=== PATIENT | male | born 1990 | race Caucasian/White ===

== ENCOUNTER 2017-10-17 06:10 | Emergency (ER) ==
[2017-10-17 06:37] VITALS: BP 164/81; TEMP 98.1; BMI 29.9
[2017-10-17] MEDS ORDERED: ATIVAN IVP STA (06:45)
--- NOTE | 2017-10-17 08:12 | ED.PDOC ---
General ED Provider: Dr. OKSANA BARRETO Chief Complaint: Shortness of Air Stated Complaint: anxiety, short of air Time Seen by Physician: 07:00 (took over care from shaan TALAVERA ) Mode of Arrival: Walk-In Information Source: Patient Exam Limitations: No limitations Nursing and Triage Documentation Reviewed and Agree: Yes Reviewed sepsis parameters & appropriate labs ordered?: Yes System Inflammatory Response Syndrome: Not Applicable Sepsis Protocol: For patient's 13 years and over: Temp is 96.8 and below OR 101 and greater Pulse >90 BPM Resp >20/minute Acutely Altered Mental Status Are patient's symptoms suggestive of a new infection, such as: -Pneumonia -Skin, Soft Tissue -Endocarditis -UTI -Bone, Joint Infection -Implantable Device -Acute Abdominal Infection -Wound Infection -Meningitis -Blood Stream Catheter Infection -Unknown System Inflammatory Response Syndrome: Not Applicable Miscellaneous Complaint Exam - Complex/Multi-System Complaint/Exam Onset/Duration: acutely anxious, palpitation, 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 Denies: Decreased responsiveness, Confusion, Dizziness, Weakness, Syncope, Short of air, Cough, Wheezing, Hemoptysis, Chest pain, Palpitations, Edema, Nausea, Vomiting, Diarrhea, Abdominal pain, Back pain, Dysuria, Hematemesis, Melena, Decreased oral intake, Fever, Diaphoresis, Immunocompromised, Anticoagulation Therapy, Recent medication changes, Indwelling medical records manager, Prior MRSA, Prior VRE, Recent trauma, Remote trauma Recent Echo/LV Function: No Respiratory Distress: None JVD Present: No Tachypnea Present: No Stridor Present: No Abdominal Findings: Present: Normal findings Glascow Coma Scale (see protocol): 15 NO NEURO DEFICITS NOTED ON MY ARRIVAL AND THROUGH OUT PRESENTATION Meningeal Signs Positive: No Focal Weakness: Present: None Focal Sensory Loss: Present: None Gait: Normal Gag Reflex Present: Yes Differential Diagnosis: Other (ANXIETY, DRUG ABUSE ) Quality Indicators for Cardiac Chest Pain: EKG in 10min. Quality Indicators for AMI: EKG in 10min. Quality Indicator For Non-Traumatic Chest Pain/Syncope: EKG Performed Review of Systems - Review Of Systems Constitutional: Reports: No symptoms Eyes: Reports: No symptoms Ears, Nose, Mouth, Throat: Reports: No symptoms Respiratory: Reports: No symptoms Cardiac: Reports: No symptoms GI: Reports: No symptoms : Reports: No symptoms Musculoskeletal: Reports: No symptoms Skin: Reports: No symptoms Neurological: Reports: No symptoms Endocrine: Reports: No symptoms Hematologic/Lymphatic: Reports: No symptoms All Other Systems: Reviewed and Negative Past Medical History - Past Medical History Previously Healthy: Yes Endocrine: Reports: None Cardiovascular: Reports: None Respiratory: Reports: None Hematological: Reports: None Gastrointestinal: Reports: None Genitourinary: Reports: None Neuro/Psych: Reports: None Musculoskeletal: Reports: None Cancer: Reports: None - Surgical History General Surgical History: Reports: None - Family History Family History: Reports: None - Social History Smoking Status: Current every day smoker Hx Substance Use: Yes (marijuana - one day ago) Alcohol Screening: Occasionally - Immunizations Tetanus Shot up to Date: Yes Physical Exam - Physical Exam Appearance: Well-appearing, No pain distress, Well-nourished Eyes: REGAN, EOMI, Conjunctiva clear ENT: Ears normal, Nose normal, Oropharynx normal Respiratory: Airway patent, Breath sounds clear, Breath sounds equal, Respirations nonlabored Cardiovascular: RRR, Pulses normal, No rub, No murmur GI/: Soft, Nontender, No masses, Bowel sounds normal, No Organomegaly Musculoskeletal: Normal strength, ROM intact, No edema, No calf tenderness Skin: Warm, Dry, Normal color Neurological: Sensation intact, Motor intact, Reflexes intact, Cranial nerves intact, Alert, Oriented Psychiatric: Affect appropriate, Mood appropriate Interpretation - Radiology Interpretation Radiology Interpretation By: Radiologist Radiology Results: No acute changes Critical Care Note - Critical Care Note Total Time (mins): 0 Course - Course Hematology/Chemistry: 10/17/17 06:50 10/17/17 06:50 Orders, Labs, Meds: Lab Review 10/17/17 10/17/17 10/17/17 06:50 06:50 07:00 WBC 10.76 H RBC 5.43 Hgb 16.1 Hct 43.8 MCV 80.7 MCH 29.7 MCHC 36.8 H RDW Coeff of [place] 11.9 Plt Count 252 Immature Gran % (Auto) 0.2 Neut % (Auto) 58.1 Lymph % (Auto) 27.6 [place] % (Auto) 9.4 Eos % (Auto) 4.1 Baso % (Auto) 0.6 Immature Gran # (Auto) 0.0 Neut # 6.3 Lymph # 3.0 [place] # 1.0 Eos # 0.4 Baso # 0.1 Puncture Site L brach O2 Saturation 100.0 ABG pH 7.661 H* ABG pCO2 14.2 L ABG pO2 142.0 H ABG HCO3 16.0 L ABG Total CO2 16 L ABG Base Excess -5 L Shayne Test + FiO2 % 21.0 Sodium 137 Potassium 3.0 L Chloride 103 Carbon Dioxide 17 L Anion Gap 20.0 BUN 22 H Creatinine 1.39 H Estimated GFR (MDRD) 61.00 BUN/Creatinine Ratio 15.82 Glucose 104 H Calcium 9.5 Total Bilirubin 2.0 H AST 27 ALT 26 Alkaline Phosphatase 66 Total Creatine Kinase 326 CK-MB (CK-2) 4.2 H CK-MB (CK-2) % 1.99465 Troponin I < 0.0100 Total Protein 8.1 Albumin 4.6 Globulin 3.5 Albumin/Globulin Ratio 1.31 Urine Color Urine Clarity Urine pH Ur Specific [place] Urine Protein Urine Glucose (UA) Urine Ketones Urine Blood Urine Nitrite Urine Bilirubin Urine Urobilinogen Ur Leukocyte Esterase Urine Microscopic WBC Ur Squamous Epith Cells Amorphous Sediment Urine Mucus Urine Opiates Screen Ur Oxycodone Screen Urine Methadone Screen Ur Propoxyphene Screen Ur Barbiturates Screen U Tricyclic Antidepress Ur Phencyclidine Scrn Ur Amphetamine Screen U Methamphetamines Scrn U Benzodiazepines Scrn Urine Cocaine Screen U Cannabinoids Screen 10/17/17 10/17/17 07:20 07:20 WBC RBC Hgb Hct MCV MCH MCHC RDW Coeff of [place] Plt Count Immature Gran % (Auto) Neut % (Auto) Lymph % (Auto) [place] % (Auto) Eos % (Auto) Baso % (Auto) Immature Gran # (Auto) Neut # Lymph # [place] # Eos # Baso # Puncture Site O2 Saturation ABG pH ABG pCO2 ABG pO2 ABG HCO3 ABG Total CO2 ABG Base Excess Shayne Test FiO2 % Sodium Potassium Chloride Carbon Dioxide Anion Gap BUN Creatinine Estimated GFR (MDRD) BUN/Creatinine Ratio Glucose Calcium Total Bilirubin AST ALT Alkaline Phosphatase Total Creatine Kinase CK-MB (CK-2) CK-MB (CK-2) % Troponin I Total Protein Albumin Globulin Albumin/Globulin Ratio Urine Color Yellow Urine Clarity Clear Urine pH 6.0 Ur Specific [place] 1.025 Urine Protein Trace Urine Glucose (UA) Negative Urine Ketones 2+ Urine Blood Negative Urine Nitrite Negative Urine Bilirubin 1+ Urine Urobilinogen 0.2 Ur Leukocyte Esterase Negative Urine Microscopic WBC 0-2 Ur Squamous Epith Cells 0-2 Amorphous Sediment Trace Urine Mucus 1+ Urine Opiates Screen Negative Ur Oxycodone Screen Negative Urine Methadone Screen Negative Ur Propoxyphene Screen Negative Ur Barbiturates Screen Negative U Tricyclic Antidepress Negative Ur Phencyclidine Scrn Negative Ur Amphetamine Screen Positive U Methamphetamines Scrn Positive U Benzodiazepines Scrn Negative Urine Cocaine Screen Positive U Cannabinoids Screen Positive Orders Category Date Time Status ABG DRAW REQUEST Stat CARDIO 10/17/17 06:44 Completed EKG-(ED ONLY) Stat CARDIO 10/17/17 06:44 Completed NPO REMINDER: IMAGING ONCE CARE 10/17/17 06:45 Completed Chief Security And Safety Officer [ED SHIPFITTER APPRENTICE APPLIED] .ONCE EMERGENCY 10/17/17 06:51 Active ED IV/MEDIPORT/POWERPORT .ONCE EMERGENCY 10/17/17 06:45 Active ABG Stat LAB 10/17/17 07:00 Completed CBC W/ AUTO DIFF Stat LAB 10/17/17 06:50 Completed COMPREHENSIVE METABOLIC PANEL Stat LAB 10/17/17 06:50 Completed CREATINE KINASE Stat LAB 10/17/17 06:50 Completed TROPONIN I Stat LAB 10/17/17 06:50 Completed URINALYSIS C & S IF INDICATED Stat LAB 10/17/17 07:20 Completed URINE DRUG SCREEN (RAPID FOR ED) [DRUG SCREEN, URINE, LAB 10/17/17 07:20 Completed RAPID] Stat 0.9 % Sodium Chloride [Saline Flush] MEDS 10/17/17 06:45 Active 1 syr IVF PRN PRN Lorazepam Inj [Ativan] MEDS 10/17/17 06:45 Discontinued 1 mg IVP ONCE STA CT CHEST PE PROTOCOL Stat RADS 10/17/17 06:45 Taken Medications Generic Name Dose Route Start Last Admin Trade Name Freq PRN Reason Stop Dose Admin Sodium Chloride 1 syr 10/17/17 06:45 10/17/17 06:58 Saline Flush IVF 1 syr PRN PRN Administration To flush IV Discontinued Medications Generic Name Dose Route Start Last Admin Trade Name Freq PRN Reason Stop Dose Admin Lorazepam 1 mg 10/17/17 06:45 10/17/17 06:56 Ativan IVP 10/17/17 06:46 1 mg ONCE STA Administration Vital Signs: Temp Pulse Resp BP Pulse Ox 10/17/17 06:12 98.1 F 80 24 164/81 H 99 Departure - Departure Time of Disposition: 08:15 Disposition: HOME SELF-CARE Discharge Problem: Amphetamine abuse, episodic Instructions: Methamphetamine Abuse (ED) Condition: Good Pt referred to PMD for follow-up: Yes IPMP verified?: Yes Additional Instructions: Please call your Family Physician as soon as possible to schedule a follow-up appointment. Allergies/Adverse Reactions: Allergies No Known Allergies Allergy (Unverified 10/17/17 06:24) Home Medications: Ambulatory Orders 1 [No Reported Medications] 10/17/17 Disposition Discussed With: Patient
--- NOTE | 2017-10-17 08:20 | CT ---
EXAM: CTA of the chest. History: Chest pain and dyspnea. Technique: Multiplanar CT images through the chest were obtained following administration of IV cont rast. MIP images and 3-D reconstructions were also provided. Findings: Heart size is normal. No pericardial effusion. No pathologically enlarged thoracic lymph nodes. Great vessels are unremarkable. No pulmonary arterial filling defects. No consolidation. N o pleural fluid and no pneumothorax. No lung masses or lung nodules. Within the visualized upper abdomen, no acute findings. No acute osseous abnormalities. Impression: No acute cardiopulmonary process.
== END 2017-10-17 08:30 | disposition left against medical advice (07) ==
LOC: ED 06:10
DX: F15.10 Other stimulant abuse, uncomplicated (principal); R06.02 Shortness of breath; F17.210 Nicotine dependence, cigarettes, uncomplicated
CPT/HCPCS: 36415; 80053; 80306; 81001; 82550; 82553; 82803; 84484; 85025; 93005; 93010; 96374; 99284